=== PATIENT | male | born 1995 | race Two or more races ===

== ENCOUNTER 2020-02-26 13:49 | Emergency (ER) | payer MEDICAID, SELFPAY ==
[2020-02-26 13:59] VITALS: BP 127/72; PULSE 84; RESP 20; TEMP 37; O2SAT 98; BMI 18.6
[2020-02-26 14:18] VITALS: BP 127/72; PULSE 84; RESP 20; TEMP 37; O2SAT 98
--- NOTE | 2020-02-26 14:32 | [facility].EDUTC ---
[place] Disposition Clinical Impression: Abscess Disposition: Home, Self-Care Condition on Discharge: Good Instructions: DI for Skin Abscess, Trimethoprim/Sulfamethoxazole (Alternative Therapy), DI for Epidermal Cyst Additional Instructions: *Start antibiotic(s) immediately and be sure to take as ordered for the FULL length of time although you may be feeling better or start to see improvement in the next 24-48 hours *Monitor closely. Outlined redness so that you can monitor easier. Follow up immediately for new or worsening symptoms including but not limited to redness, swelling, streaking from site fever or chills. *Warm compress 15 minutes 3-4 times day *Never squeeze or pop these on your own. Seek immediate medical attention next time this occurs *Monitor Temp. Tylenol every 4 hours as needed and ibuprofen every 6 hours as needed (as long as your primary care doctor has told you that it is ok to take both. For fever, aches, pain. ER if no less that 101 despite Tylenol and ibuprofen Follow up with your family doctor/primary care physician in the next 48-72 hours if no improvement [facility] on Feb 28 at [facility] [facility] [address] Betancourt Return if needed Prescriptions: Sulfamethoxazole/Trimethoprim [Bactrim DS tablet] 1 each PO BID 10 Days #20 tab Prescription Printed Referrals: PCP,No [Primary Care Provider] - As needed Doni Betancourt MD [Staff Physician] - 02/29/20 12:30 pm Time of Disposition: 14:44 Medical Decision Making - Navjot Inquiry Pt receiving controlled substance: No Navjot was queried for this patient: No Vital Signs: 02/26/20 13:59 02/26/20 14:18 Temperature 98.6 F 98.6 F Temperature Source Oral Pulse Rate 84 Pulse Rate [Left] 84 Respiratory Rate 20 20 Blood Pressure 127/72 Blood Pressure [Right Arm] 127/72 Blood Pressure Mean [Right Arm] 90 Blood Pressure Source [Right Arm] Automatic Cuff Blood Pressure Position [Right Arm] Sitting 02 Sat by Pulse Oximetry 98 Oxygen Delivery Method Room Air - Physician Consults Physician Consulted: Serafin Time: 14:41 Reason -: ENT Eval/Care Comment/Response: Spoke with Roshan [facility] office and informed her of finding patient given appointement for Feb 28 at 1230 and will start on antibiotic [place] HPI - General Stated complaint: Cyst along jawline Time Seen by Provider: 02/26/20 14:32 Mode of Arrival: Ambulatory Source of Information: Patient Limitations: No Limitations Description of Symptoms (Recalled from Triage Doc. by RN): Left Jaw swelling HEENT Symptoms (Recalled from RN notes): No Resp Symptoms (Recalled from RN notes): No Skin Symptoms (Recalled from RN notes): No MS Symptoms (Recalled from RN notes): No Functional Status (Recalled from RN notes): wnl - History of Present Illness Provider Complaint: Patient able to speak and understand haitian, states that he has knot on his left jaw for about a month that has got bigger, states sore and hurts when he pushes on it or touches it. Thinks it may be infected and need medicine - Related Data Previous Rx's Medication Instructions Recorded Sulfamethoxazole/Trimethoprim 1 each PO BID 10 Days #20 tab 02/26/20 [Bactrim DS tablet] - Worker's Comp Is this a Worker's Comp case?: No Is this an [facility] Worker's Comp?: No Is this a So Worker's Comp?: No [facility] History - Hepatitis A Screen Drug use history?: No High risk sexual behaviors?: No History of sexually transmitted infection?: No Currently employed?: No Childcare worker?: No Do you have indoor plumbing?: Yes Do you have electricity?: Yes Attestation statement:: This patient has been screened for Hepatitis A risk factors. I have reviewed the patient's past medical history: Yes Medical History: Denies:: Cancer, Diabetes Mellitus Type 1, Diabetes Mellitus Type 2, MRSA Amputation: No Fractures: No - Social History Smoking Status: Never smoker Alcohol Intake: never Occupational Status:
== END 2020-02-26 15:19 | disposition home or self-care (01) ==
PROVIDERS: Emergency Provider Nurse Practitioner
DX: L02.01 Cutaneous abscess of face (principal)
CPT/HCPCS: 99201

== ENCOUNTER → 2020-02-29 13:16 | Outpatient (CLI) | payer MEDICAID, SELFPAY ==
[2020-02-29 13:18] LABS: MANUAL DIFFERENTIAL MANUAL DIFFERENTIAL (MANUAL DIFF)
[2020-02-29 13:53] LABS: Basophils # 0.2 K/mm3 (0-0.2); Basophils % 2.2 % (0.1-2.0); Eosinophils # 0.1 K/mm3 (0.0-0.4); Eosinophils % 0.9 % (0.1-12.0); Hematocrit 51.7 % (42.0-52.0); Hemoglobin 15.7 g/dL (14.1-18.0); Lymphocytes # 2.8 K/mm3 (0.7-4.5); Mean Corpuscular HGB Conc 30.4 g/dL (31.8-35.4); Mean Corpuscular Hemoglobin 31.3 pg (27.0-31.2); Mean Corpuscular Volume 102.8 fl (80-94); Mean Platelet Volume 12.9 fl (7.4-10.4); Monocytes # 0.4 K/mm3 (0.1-1.0); Monocytes % 4.8 % (1.7-9.3); Neutrophils # 5.1 K/mm3 (1.8-7.8); Neutrophils % 61.2 % (37.0-80.0); Platelet Count 295 K/mm3 (142-424); Red Blood Count 5.03 M/mm3 (4.60-6.20); Red Cell Distribution Width 14.3 % (11.5-17.5); White Blood Count 8.4 K/mm3 (4.8-10.8)
[2020-02-29 14:31] LABS: Anisocytosis 1+; Eosinophils % 1 % (0-3); Lymphocytes % 37 % (10-50); Macrocytosis 1+; Monocytes % 7 % (2-9); Neutrophils % 55 % (42-76); Platelet Estimate Normal; Total Cells Counted 100
[2020-02-29 14:59] LABS: Alanine Aminotransferase 14 U/L (12-78); Albumin/Globulin Ratio 1.7 (1.1-1.8); Alkaline Phosphatase 86 U/L (38-126); Aspartate Amino Transferase 32 U/L (17-59); Bilirubin,Total 0.7 mg/dl (0.2-1.3); Blood Urea Nitrogen 16 mg/dl (9-20); Calcium 9.7 mg/dl (8.4-10.2); Carbon Dioxide 28 mmol/L (22.0-30.0); Chloride 99 mmol/L (98-107); Estimated Glomerular Filt Rate 74 ml/min (>60); GFR (African American) 89 ML/MIN (>60); Glucose 92 mg/dl (74-100); Sodium 136 mmol/L (136-145)
== END ==
PROVIDERS: Visit Provider Otolaryngology
DX: D17.0 Benign lipomatous neoplasm of skin and subcutaneous tissue of head, face and neck (principal)
CPT/HCPCS: 36415; 80053; 85007; 85014; 85018; 85048; 85049

== ENCOUNTER → 2020-03-06 10:29 | Outpatient (CLI) | payer MEDICAID, SELFPAY ==
--- NOTE | 2020-03-06 10:29 | CT_ITS ---
PROCEDURE: CT SOFT TISSUE NECK WO/W CON CLINICAL HISTORY: left neck cystic area PAINFUL CYSTIC AREA, LEFT SIDE OF NECK, BELOW MANDIBLE MARKED WITH BB COMPARISON: No exams were available for comparison TECHNIQUE: Oral Contrast: None IV Contrast: 75 mL Isovue 370 Axial images obtained with sagittal and coronal reformats. All CT scans at the facility use one or more dose reduction, viz: automated exposure control, ma/kV adjustment per patient size (including targeted exams where dose is matched to indication, i.e. head), or iterative reconstruction technique. FINDINGS: There is mild prominence the uvula on the right. The nasopharyngeal region has an unremarkable appearance. The hypopharynx pharynx and laryngeal region and glottic area have an unremarkable. The epiglottis appears unremarkable. No abnormal fluid collection is evident. A BB is placed along the left side of the neck at the region of palpable abnormality. There is a subcutaneous oval area of heterogeneous signal intensity at this region measuring approximately 2.4 x 0.9 cm. No gas is evident within this collection. No other significant anomalies are evident. Lung apices are clear. IMPRESSION: There is a 2.4 x 0.9 cm abnormal oval area of soft tissue attenuation in the subcutaneous region of the left neck at the submandibular area. This could represent a focal area of cellulitis. No drainable fluid collection evident. Please correlate with clinical findings. Dictated by: Delvin Spence MD 03/07/2020 16:09 Delvin Spence MD in [place] 03/07/2020 16:09
== END ==
PROVIDERS: PCP Otolaryngology; Visit Provider Otolaryngology
DX: D17.0 Benign lipomatous neoplasm of skin and subcutaneous tissue of head, face and neck (principal)
CPT/HCPCS: 70492; Q9967

== ENCOUNTER 2022-08-01 10:12 | Emergency (ER) | payer SELFPAY ==
[2022-08-01 10:14] VITALS: BP 129/79; PULSE 98; RESP 18; TEMP 37.2; O2SAT 99; BMI 18.1
--- NOTE | 2022-08-01 10:32 | [facility].EDGENADL ---
Discharge Plan Disposition Patient Disposition: Home, Self-Care Condition: Good Prescriptions Prescriptions: New amoxicillin-pot clavulanate [Augmentin] 500-125 mg tablet 1 tab PO Q12H Qty: 20 0RF prednisone 50 mg tablet 50 mg PO DAILY 5 Days Qty: 5 0RF pantoprazole [Protonix] [address] for susp in packet 40 mg PO DAILY 28 Days Qty: 30 0RF Referrals Follow up/Referrals: Provider,Referral, MD [Primary Care Provider] - See instructions Clinical Impressions Clinical Impression: Acute sore throat Discharge ED Provider: Mg Rivera General Adult HPI General Chief complaint: Upper Respiratory Infection Stated complaint: Sore throat fever Time Seen by Provider: 08/01/22 10:16 Mode of Arrival: Ambulatory Source of Information: Patient Limitations: No Limitations Description of Symptoms (Recalled from ER Triage Doc. by RN): pt reports sore throat, along with pain under his tongue and lips that started wednesday into wednesday, states his tonsils hurt, reports low grade fever and states he hasn't been able to eat due to the pain History of Present Illness HPI narrative: This is a very pleasant 27-year-old gentleman with a past medical history of a hiatal hernia who presents with a sore throat. This is been going on for about 4 days. Constant. Moderate. Worse with eating. Associated with subjective fevers. No chest pain, shortness of breath, voice changes, trouble handling secretions. No vision changes. Patient also states he was previously diagnosed with a hiatal hernia and this is been bothering him and he would like some medicine for it. Related Data Home Medications Medication Instructions Recorded Confirmed No Known Home Medications 08/01/22 08/01/22 Allergies Allergy/AdvReac Type Severity Reaction Status Date / Time No Known Allergies Allergy Verified 08/01/22 10:33 [facility] Disclaimer: The information contained in this section may have been updated after the patient was seen, as this information can be updated by other users. Social History Smoking Status: Never smoker second hand exposure: No alcohol intake: never current occupational status: employed Travel in the last 8 weeks: None ROS Obtained: Yes All systems reviewed & no additional complaints except as documented Physical Exam General General appearance: alert Head Head exam: atraumatic Eye Eye exam: Present normal appearance ENT ENT exam: Present other (Tonsillar erythema bilaterally. Midline uvula. No tonsillar swelling. No submandibular, sublingual, submental swelling. Patient speaking in full sentences. Tolerating secretions without difficulty. Full range of motion of neck without any pain or limitation. There is bulging erythematous tymp) Neck Neck exam: Present normal inspection, full ROM and trachea midline Chest Chest inspection: Present normal inspection Respiratory Respiratory exam: Present normal lung sounds bilaterally Cardiovascular Cardiovascular exam: Present regular rate Abdominal Exam Abdominal exam: Present soft Neurological Exam Neurological exam: Present alert Medical Decision Making Navjot Inquiry Pt receiving controlled substance: No Vital Signs: 08/01/22 10:14 Temperature 98.9 F Temperature Source Oral Pulse Rate [Right Radial] 98 H Respiratory Rate 18 Blood Pressure [Right Arm] 129/79 Blood Pressure Mean [Right Arm] 95 Blood Pressure Source [Right Arm] Automatic Cuff Blood Pressure Position [Right Arm] Sitting 02 Sat by Pulse Oximetry 99 Oxygen Delivery Method Room Air Medical Decision Narrative: Patient presents with a sore throat. Upon arrival in no acute distress, vital signs are reassuring. Physical exam consistent with pharyngitis as well as acute otitis media on the right. He denies any allergies so we will treat with Augmentin and steroids. As he is already being treated with Augmentin to cover ear infection this will treat h
--- NOTE | 2022-08-01 10:36 | PC.NURSE ---
senior marketing specialist used for triage and assessment.
[2022-08-01 10:44] VITALS: BP 127/68; PULSE 80; RESP 18; TEMP 37.2; O2SAT 99
== END 2022-08-01 10:44 | disposition home or self-care (01) ==
PROVIDERS: Emergency Provider Emergency Medicine
DX: J02.9 Acute pharyngitis, unspecified (principal); R50.9 Fever, unspecified
CPT/HCPCS: 99283; 99284